=== PATIENT | male | born 1955 | race Asian ===

== ENCOUNTER 2020-09-03 11:40 | Emergency (ER) | payer BC ==
[~2020-09-03] VITALS: Ht 175.3 cm; Wt 77.6 kg
[2020-09-03 14:36] VITALS: BP 157/87
== END 2020-09-03 14:45 | disposition short-term general hospital (02) ==
LOC: ED 11:40
DX: S05.32XA Ocular laceration without prolapse or loss of intraocular tissue, left eye, initial encounter (principal); S01.81XA Laceration without foreign body of other part of head, initial encounter; Z20.822 Contact with and (suspected) exposure to COVID-19; W20.8XXA Other cause of strike by thrown, projected or falling object, initial encounter; Y93.89 Activity, other specified; Y92.89 Other specified places as the place of occurrence of the external cause; Y99.8 Other external cause status
CPT/HCPCS: 90715; J2270